=== PATIENT | male | born 1965 | race African-American/Black ===

== ENCOUNTER 2020-03-22 18:39 | Emergency (ER) | payer MEDICAID ==
[~2020-03-22] VITALS: Ht 188 cm; Wt 62.0 kg
[2020-03-22] MEDS ORDERED: ACETAMINOPHEN 325MG TABLET ONE (18:57)
[2020-03-22] MEDS ORDERED: ACETAMINOPHEN 325MG TABLET PO ONE (20:30)
[2020-03-23] MEDS ORDERED: ACETAMINOPHEN 500MG TABLET PO SCH (02:00)
[2020-03-23] MEDS ORDERED: IBUPROFEN 600MG TABLET PO STA (06:44)
[2020-03-23 14:26] VITALS: BP 129/62
== END 2020-03-23 14:32 | disposition home or self-care (01) ==
LOC: ER 18:53
DX: B34.9 Viral infection, unspecified (principal); R53.1 Weakness; J45.909 Unspecified asthma, uncomplicated; E11.9 Type 2 diabetes mellitus without complications
CPT/HCPCS: 71045; 99285

== ENCOUNTER 2022-01-16 17:52 | Inpatient (IN) | payer MEDICAID ==
[~2022-01-16] VITALS: Ht 193 cm; Wt 80.3 kg
[2022-01-16] MEDS ORDERED: KETOROLAC 60MG/2ML VIAL IM ONE (18:30)
[2022-01-16] MEDS ORDERED: ACETAMINOPHEN WITH CODEINE 300/30MG TABLET PO ONE (18:30)
[2022-01-16] MEDS ORDERED: MORPHINE SULFATE 4 MG/ML CPJ (NOT FOR IM USE) IV STA (19:44)
[2022-01-16 21:00] LABS: BASOPHILS % 0.5 % (0.0-2.0); EOSINOPHILS % 0.3 % (0.0-5.0); HEMATOCRIT. 37.1 % (42.0-52.0); HEMOGLOBIN. 12.3 g/dL (14.0-18.0); LYMPHOCYTES % 13.5 % (20.0-50.0); MEAN CORPUSCULAR HEMOGLOBIN 29.9 pg (28.0-32.0); MEAN CORPUSCULAR VOLUME 90.1 fL (80.0-94.0); MEAN PLATELET VOLUME 7.8 fl (7.4-10.4); NEUTROPHILS % 77.7 % (40.0-76.0); PLATELET 202 x1000/uL (130-400); RED BLOOD CELL COUNT 4.11 mill/uL (4.7-6.1); RED CELL DISTRIBUTION WIDTH 13.8 % (11.6-14.6)
[2022-01-16 21:08] LABS: CHLORIDE 105 mEq/L (98-107)
[2022-01-17] MEDS ORDERED: HYDROCODONE/ACETAMINOPHEN 5/325MG TABLET PO PRN (09:30)
[2022-01-17] MEDS ORDERED: DEXTROSE 50% WATER 50ML SYRINGE IV PRN (09:30)
[2022-01-17] MEDS: INSULIN LISPRO 100 UNITS/ML SUBCUT SCH ×3 (11:28→21:45)
[2022-01-17] MEDS: BLOOD SUGAR DIAGNOSTIC STRIP TEST SCH ×3 (11:44→21:28)
[2022-01-17 13:32] VITALS: BP 142/76
[2022-01-17 14:00] VITALS: BP 142/76
[2022-01-17 14:57] LABS: *AMPHETAMINES SCREEN URINE NEGATIVE (NEGATIVE); *BARBITURATES SCREEN URINE NEGATIVE (NEGATIVE); *COCAINE SCREEN URINE PRESUMTIVE POSITIVE (NEGATIVE)
[2022-01-17 14:58] LABS: *BENZODIAZEPINES SCREEN URINE NEGATIVE (NEGATIVE); CANNABINOID URINE SCREEN NEGATIVE (NEGATIVE); METHADONE URINE SCREEN NEGATIVE (NEGATIVE); OPIATES URINE SCREEN PRESUMTIVE POSITIVE (NEGATIVE); PHENCYCLIDINE URINE SCREEN NEGATIVE (NEGATIVE)
[2022-01-17 16:00] VITALS: BP 140/82
[2022-01-17 20:00] VITALS: BP 130/72
[2022-01-18] VITALS: BP 142/82
[2022-01-18 04:00] VITALS: BP 136/85
[2022-01-18] MEDS: INSULIN LISPRO 100 UNITS/ML SUBCUT SCH ×4 (07:50→21:00)
[2022-01-18] MEDS: BLOOD SUGAR DIAGNOSTIC STRIP TEST SCH ×4 (07:56→21:00)
[2022-01-18 08:00] VITALS: BP 142/77
[2022-01-18 12:00] VITALS: BP 142/86
[2022-01-18] MEDS ORDERED: IPRATROPIUM/ALBUTEROL 0.5-3(2.5)MG/3ML NEB HHN PRN (15:45)
[2022-01-18 16:00] VITALS: BP 139/78
[2022-01-18 17:45] LABS: PROTHROMBIN TIME 10.9 sec (9.6-11.0)
[2022-01-18] MEDS: DEXAMETHASONE 4MG/ML 1ML VIAL IV SCH ×2 (19:15→23:44)
[2022-01-18 20:00] VITALS: BP 116/76
[2022-01-18] MEDS ORDERED: NALOXONE HCL 0.4MG/ML VIAL IV PRN (22:30)
[2022-01-19] VITALS: BP 111/59
[2022-01-19 04:00] VITALS: BP 114/61
[2022-01-19] MEDS: DEXAMETHASONE 4MG/ML 1ML VIAL IV SCH ×4 (06:02→23:41)
[2022-01-19] MEDS: BLOOD SUGAR DIAGNOSTIC STRIP TEST SCH ×4 (06:36→21:00)
[2022-01-19 08:00] VITALS: BP 124/66
[2022-01-19] MEDS: INSULIN LISPRO 100 UNITS/ML SUBCUT SCH ×4 (08:23→21:29)
[2022-01-19 12:00] VITALS: BP 110/65
[2022-01-19 16:00] VITALS: BP 111/67
[2022-01-19 16:06] LABS: BASOPHILS % 0.3 % (0.0-2.0); HEMATOCRIT. 41.4 % (42.0-52.0); HEMOGLOBIN. 13.4 g/dL (14.0-18.0); LYMPHOCYTES % 7.3 % (20.0-50.0); MEAN CORPUSCULAR HEMOGLOBIN 29.4 pg (28.0-32.0); MEAN CORPUSCULAR VOLUME 90.9 fL (80.0-94.0); MEAN PLATELET VOLUME 8.2 fl (7.4-10.4); MONOCYTES % 3.9 % (2.0-8.0); NEUTROPHILS % 88.5 % (40.0-76.0); PLATELET 246 x1000/uL (130-400); RED BLOOD CELL COUNT 4.55 mill/uL (4.7-6.1); RED CELL DISTRIBUTION WIDTH 13.8 % (11.6-14.6)
[2022-01-19 16:16] LABS: PARTIAL THROMBOPLASTIN TIME 28.9 sec (23.4-31.0); PROTHROMBIN TIME 10.7 sec (9.6-11.0)
[2022-01-19 16:48] LABS: CHLORIDE 102 mEq/L (98-107)
[2022-01-19 20:00] VITALS: BP 109/64
[2022-01-19] MEDS ORDERED: INSULIN GLARGINE UD 100 UNITS/ML SYR SUBCUT SCH (22:00)
[2022-01-20] VITALS (59 sets, daily range): BP systolic 106–212; BP diastolic 46–102
[2022-01-20] MEDS: DEXAMETHASONE 4MG/ML 1ML VIAL IV SCH ×4 (06:19→23:40)
[2022-01-20] MEDS ORDERED: LIDOCAINE HCL/EPINEPHRINE 1%-EPI 1:100,000 30 ML VIAL INFIL ONE (06:27)
[2022-01-20] MEDS ORDERED: GENTAMICIN SULF 40MG/ML 2ML VIAL ONE (06:27)
[2022-01-20] MEDS ORDERED: BACITRACIN 15GM TUBE TOP ONE (06:28)
[2022-01-20] MEDS ORDERED: THROMBIN (BOVINE) 5000 UNITS/VIAL TOP ONE (06:28)
[2022-01-20] MEDS: BLOOD SUGAR DIAGNOSTIC STRIP TEST SCH ×4 (06:57→21:29)
[2022-01-20] MEDS ORDERED: PROPOFOL 10MG/ML 100ML 0 ML IV ONE (07:20)
[2022-01-20] MEDS ORDERED: NICARDIPINE 40MG/200ML PREMIX 200 ML IV ONE (07:24)
[2022-01-20] MEDS ORDERED: ACETAMINOPHEN 500MG TABLET ONE (07:25)
[2022-01-20] MEDS ORDERED: PHENYLEPHRINE HCL 10 MG/ML 1ML (IV VIAL) IV ONE (07:29)
[2022-01-20] MEDS ORDERED: FENTANYL CITRATE/PF 50MCG/ML 2ML VIAL ONE ×2 (07:35→08:23)
[2022-01-20] MEDS ORDERED: MIDAZOLAM HCL 2 MG/2 ML VIAL ONE (07:35)
[2022-01-20] MEDS ORDERED: LIDOCAINE HCL 1% 20ML VIAL (Pyxis) INJ ONE (07:40)
[2022-01-20] MEDS ORDERED: CEFAZOLIN SODIUM 1000MG/VIAL ONE (07:58)
[2022-01-20] MEDS ORDERED: ONDANSETRON HCL 4MG/2ML INJ ONE (07:58)
[2022-01-20] MEDS ORDERED: ROCURONIUM BROMIDE 10MG/ML VIAL 5ML IV ONE (07:58)
[2022-01-20] MEDS ORDERED: SODIUM CHLORIDE 0.9% 10ML VIAL ONE (07:58)
[2022-01-20] MEDS ORDERED: METOCLOPRAMIDE HCL 10MG/2ML VIAL ONE (07:58)
[2022-01-20] MEDS ORDERED: VECURONIUM BROMIDE 10 MG/VIAL IV ONE (08:49)
[2022-01-20] MEDS ORDERED: NEOSTIGMINE METHYLSULFATE 1MG/ML 10 ML VIAL ONE (08:50)
[2022-01-20] MEDS ORDERED: GLYCOPYRROLATE 0.2 MG/ML 2ML VIAL ONE (08:50)
[2022-01-20] MEDS ORDERED: INSULIN REGULAR (HUMULIN R) 300UNITS/3ML VIAL ONE ×2 (09:07→09:14)
[2022-01-20] MEDS ORDERED: PROPOFOL 10MG/ML 100ML 100 ML IV ONE (09:17)
[2022-01-20] MEDS ORDERED: DEXAMETHASONE 4MG/ML 1ML VIAL ONE (09:48)
[2022-01-20] MEDS ORDERED: ATROPINE SULFATE 1MG/10ML SYR ONE (09:54)
[2022-01-20] MEDS ORDERED: MORPHINE SULFATE 2 MG/ML CPJ (NOT FOR IM USE) IV PRN (10:00)
[2022-01-20] MEDS ORDERED: HYDROMORPHONE HCL/PF 2MG/ML CPJ IV SCH (10:30)
[2022-01-20] MEDS ORDERED: HYDROMORPHONE PCA 10MG/50ML IV PRN (10:45)
[2022-01-20] MEDS ORDERED: DIPHENHYDRAMINE INJ IV PRN (10:45)
[2022-01-20] MEDS ORDERED: NALOXONE INJ IV PRN (10:45)
[2022-01-20] MEDS ORDERED: ONDANSETRON INJ IV PRN (10:45)
[2022-01-20] MEDS: INSULIN LISPRO 100 UNITS/ML SUBCUT SCH ×3 (13:15→21:36)
[2022-01-20] MEDS: NICARDIPINE 100 MG in SODIUM CHLORIDE 0.9% 60 ML IV PRN ×2 (13:17→20:13)
[2022-01-20] MEDS ORDERED: CEFAZOLIN SODIUM 1000MG/VIAL IV SCH (14:00)
[2022-01-20] MEDS: CEFAZOLIN 1000MG PREMIX 50 ML IV SCH ×2 (15:37→21:37)
[2022-01-20] MEDS: AMLODIPINE 5MG TABLET PO SCH (17:53)
[2022-01-20] MEDS: INSULIN GLARGINE UD 100 UNITS/ML SYR SUBCUT SCH (22:24)
[2022-01-21] VITALS (68 sets, daily range): BP systolic 83–161; BP diastolic 50–113
[2022-01-21] MEDS: NICARDIPINE 100 MG in SODIUM CHLORIDE 0.9% 60 ML IV PRN (04:12)
[2022-01-21] MEDS: DEXAMETHASONE 4MG/ML 1ML VIAL IV SCH ×2 (05:16→12:28)
[2022-01-21] MEDS: CEFAZOLIN 1000MG PREMIX 50 ML IV SCH ×2 (05:17→13:18)
[2022-01-21] MEDS: BLOOD SUGAR DIAGNOSTIC STRIP TEST SCH ×4 (05:38→21:48)
[2022-01-21] MEDS: INSULIN LISPRO 100 UNITS/ML SUBCUT SCH ×4 (06:05→21:47)
[2022-01-21] MEDS: AMLODIPINE 5MG TABLET PO SCH (09:51)
[2022-01-21] MEDS ORDERED: AMLODIPINE 5MG TABLET PO NR (11:45)
[2022-01-21] MEDS: INSULIN GLARGINE UD 100 UNITS/ML SYR SUBCUT SCH (21:48)
[2022-01-22] VITALS (7 sets, daily range): BP systolic 135–151; BP diastolic 78–86
[2022-01-22] MEDS: BLOOD SUGAR DIAGNOSTIC STRIP TEST SCH ×2 (08:15→13:17)
[2022-01-22] MEDS ORDERED: AMLODIPINE 10MG TABLET PO SCH (09:00)
[2022-01-22] MEDS: INSULIN LISPRO 100 UNITS/ML SUBCUT SCH ×2 (09:49→13:26)
[2022-01-22] MEDS ORDERED: LANTUSUD SUBCUT (11:19)
[2022-01-22] MEDS ORDERED: SYRI-219 SQ (11:19)
[2022-01-22] MEDS ORDERED: BLOO-1465 MT (11:19)
[2022-01-22] MEDS ORDERED: LANC-335 MC (11:19)
[2022-01-22] MEDS ORDERED: INSLIS SUBCUT (11:19)
[2022-01-22] MEDS ORDERED: AMLO10TA80 PO (11:19)
[2022-01-22] MEDS ORDERED: LANC-929 TP (11:19)
== END 2022-01-22 15:35 | disposition home or self-care (01) | DRG 321 ==
LOC: ER 17:52 → MICUSO 01-17 01:23 → 6EST 01-17 13:16 → MICUNO 01-20 10:29 → 6EST 01-22 02:10
PROVIDERS: ADMIT Internal Medicine; ATTEND Internal Medicine
PROC: 0RG2070 Fusion of 2 or more Cervical Vertebral Joints with Autologous Tissue Substitute, Anterior Approach, Anterior Column, Open Approach (ICD-10-PCS; principal; 2022-01-20)
PROC: 0RB30ZZ Excision of Cervical Vertebral Disc, Open Approach (ICD-10-PCS; 2022-01-20)
PROC: 4A11X4G Monitoring of Peripheral Nervous Electrical Activity, Intraoperative, External Approach (ICD-10-PCS; 2022-01-20)
PROC: 01N10ZZ Release Cervical Nerve, Open Approach (ICD-10-PCS; 2022-01-20)
DX: M48.02 Spinal stenosis, cervical region (principal); G82.50 Quadriplegia, unspecified; M47.12 Other spondylosis with myelopathy, cervical region; D64.9 Anemia, unspecified; E11.9 Type 2 diabetes mellitus without complications; D72.829 Elevated white blood cell count, unspecified; F14.90 Cocaine use, unspecified, uncomplicated; F17.210 Nicotine dependence, cigarettes, uncomplicated; M47.22 Other spondylosis with radiculopathy, cervical region; Z20.822 Contact with and (suspected) exposure to COVID-19; T38.0X5A Adverse effect of glucocorticoids and synthetic analogues, initial encounter; J45.909 Unspecified asthma, uncomplicated; I10 Essential (primary) hypertension; Z71.51 Drug abuse counseling and surveillance of drug abuser; Y92.89 Other specified places as the place of occurrence of the external cause
CPT/HCPCS: 36415; 71045; 72040; 72141; 76000; 80048; 80053; 80305; 82962; 85025; 86850; 86900; 87426; 88304; 88311; 93005; 95863; 95925; 95926; 95928; 95929; 97116; 97161; 97164; 97166; 99285; C1713; C1893; J0461; J0690; J1100; J1170; J1580; J1815; J1885; J2250; J2270; J2370; J2405; J2704; J2710; J2765; J3010; J3490; J7050; L0172; C1762

== ENCOUNTER 2022-02-05 13:56 | Emergency (ER) | payer MEDICAID ==
[~2022-02-05] VITALS: Ht 193 cm; Wt 82.0 kg
[~2022-02-05 13:56] MED LIST: AMLO10TA80 PO; BLOO-1465 MT; INSLIS SUBCUT; LANC-335 MC; LANC-929 TP; LANTUSUD SUBCUT; SYRI-219 SQ
[2022-02-05 15:17] VITALS: BP 128/74
== END 2022-02-05 15:18 | disposition home or self-care (01) ==
LOC: ER 13:56
DX: S11.81XD Laceration without foreign body of other specified part of neck, subsequent encounter (principal); X58.XXXD Exposure to other specified factors, subsequent encounter; J45.909 Unspecified asthma, uncomplicated; E11.9 Type 2 diabetes mellitus without complications; Z79.899 Other long term (current) drug therapy
CPT/HCPCS: 99281